=== PATIENT | female | born 1970 | race Caucasian/White ===

== ENCOUNTER 2021-12-25 22:09 | Emergency (ER) | payer OTHER, SELFPAY ==
[2021-12-25 22:17] VITALS: BP 145/85; PULSE 78; RESP 18; TEMP 37.2; O2SAT 96
--- NOTE | 2021-12-25 22:28 | DI.RAD.S_ITS ---
PROCEDURE: XR FINGER RT MIN 2V INDICATIONS: wound from fall with redness/swelling TECHNIQUE: AP hand, 2 views of the 2nd digit acquired. COMPARISON: None. FINDINGS: Bones: No fractures or dislocations. No bony erosions. No suspicious bony lesions. Soft tissues: No suspicious soft tissue calcifications. IMPRESSION: 1. No fractures or dislocation. Dictated by: Geovani English M.D. on 12/25/2021 at 23:39 Approved by: Geovani English M.D. on 12/25/2021 at 23:40
--- NOTE | 2021-12-25 22:40 | ED_ITS ---
HPI - Skin/Abscess/Foreign Bdy General Chief complaint: Skin/Abscess/Foreign Body Stated complaint: rt index finger pain. infection Time Seen by Provider: 12/25/21 22:39 Source: patient Mode of arrival: Ambulatory History of Present Illness HPI narrative: 51-year-old female former smoker presents with pain and swelling to her right index finger over the past few days. She had injured it in suffered a small abrasion or laceration on the dorsal aspect that was thought to be nothing initially but over the past few days has increased in swelling. She has pain with palpation and range of motion. She denies the ability to completely make a fist. She has no red streaks working up her arm. She has no systemic findings such as fever or chills nor nausea or vomiting. Tetanus is current. She is otherwise well and free of complaint is had no dizziness, weakness or lightheadedness. She denies runny nose, sore throat or cough. She has had no nausea, vomiting or diarrhea. Related Data Previous Rx's Medication Instructions Recorded doxycycline hyclate 100 mg tablet 100 mg PO BID #20 tab 12/25/21 hydrocodone 5 mg-acetaminophen 325 1 tab PO Q4-6H PRN #10 tab 12/25/21 mg tablet Allergies Allergy/AdvReac Type Severity Reaction Status Date / Time No Known Drug Allergies Allergy Verified 12/25/21 22:19 Review of Systems Review of Systems Narrative: GENERAL: Denies chills, fatigue, malaise, fever, sweats. HEENT: Denies sinus pain, ear pain, sore throat, difficulty swallowing, dizziness. RESPIRATORY: Denies dyspnea, cough, wheezing, hemoptysis, sputum. CARDIOVASCULAR: Denies chest pain, palpitations, orthopnea, edema, GASTROINTESTINAL: Denies nausea, vomiting, abdominal pain, diarrhea, constipation, melena. : Denies dysuria, frequency, incontinence, hematuria, urinary retention. MUSCULOSKELETAL: See HPI SKIN: See HPI NEUROLOGIC: Denies weakness, headache, numbness, change in speech, confusion, seizures, incoordination. PSYCHIATRIC: No concerning psychosocial issues. 12 point review of systems is negative except for those stated above Patient History Social History Smoking Status: Current every day smoker Smoking Status: Current every day smoker Exam Narrative Exam Narrative: GENERAL: [] year old patient appears stated age. Well-developed patient, in mild distress. HEAD: Atraumatic. Normocephalic. EYES: Pupils equal round and reactive. Extraocular motions intact. No scleral icterus. No injection or drainage. ENT: Nose without bleeding, purulent drainage. Throat without erythema, tonsillar hypertrophy or exudate. Airway patent. NECK: Trachea midline. Non tender CARDIOVASCULAR: Regular rate and rhythm without murmurs, gallops, or rubs. RESPIRATORY: Clear to auscultation. Breath sounds equal bilaterally. No wheezes, rales, or rhonchi. GASTROINTESTINAL: Abdomen soft, non-tender, nondistended. EXTREMITIES: Right index finger with erythema and a small area of fluctuance just proximal to the nail fold with surrounding erythema. There is minimal swelling and erythema, patient has no pain along flexor tendon sheath. BACK: Nontender without deformity or crepitance. No flank tenderness. NEURO: AOx3. SKIN: No rash or erythema of visible areas Initial Vital Signs Initial Vital Signs: Vital Signs Temperature 98.9 F 12/25/21 22:17 Pulse Rate 78 12/25/21 22:17 Respiratory Rate 18 12/25/21 22:17 Blood Pressure 145/85 H 12/25/21 22:17 Pulse Oximetry 96 12/25/21 22:17 Procedures Abscess I/D I&D #1: Site: hand Side (if applicable): right Technique: incised with #11 blade Amount of fluid expressed (mL): 2 Irrigation: Yes Packing used?: none Complications: bleeding Nerve Block Nerve Block 1: Time out performed: Yes Local Anesthetic: lidocaine 1% and with bicarb Amount of anesthesia used (mL): 3 Nerve Blocks: digital Course Orders Ordered: ED Orders 12/25/21 22:28 XR finger RT min 2V Stat 12/25/21 23:15 Wound Culture and Gram Stain Stat Discontinued Medications Hydrocodone Bitart/Acetaminophen (Hydrocodone/Acet 5/325 Prepack) 1 bottle MISC SEEINSTR ONE Stop: 12/25/21 23:00 Last Admin: 12/25/21 23:19 Dose: 1 bottle Documented by: LESLIE Doxycycline Hyclate (Doxycycline Hyclate 100 Mg Tablet) 100 mg PO NOW ONE Stop: 12/25/21 23:00 Last Admin: 12/25/21 23:19 Dose: 100 mg Documented by: LESLIE Lidocaine/Sodium Bicarbonate (Lido 1%/Sod Bicarb 8.4% (10ml) 10 Ml Syringe) 10 ml INJ NOW ONE Stop: 12/25/21 22:43 Last Admin: 12/25/21 23:19 Dose: 10 ml Documented by: LESLIE Consultations Consultation #1: discussed with instructional technology specialist ortho (Valeria) and she recommends, digital block, I&D with culture, wick if possible, ABX and follow up Vital Signs Vital signs: Vital Signs - 8 hr 12/25/21 22:17 Temperature 98.9 F Pulse Rate 78 Respiratory Rate 18 Blood Pressure 145/85 H Pulse Oximetry 96 MDM - Skin/Abscess/Foreign Bdy Imaging Data Extremity x-ray #1: Radiologist's Impression: Close Finger X-Ray (Signed) Geovani English - 12/25/21 Launch?[place] [address] XRay Report Signed Patient: Nohemi Hsu MR#: [id number] : 1970 Acct:[id number] Age/Sex: 51 / F Date of Service: 12/25/21 Loc: ED Accession Number: [id number] ?? Procedure: XR finger RT min 2V Ordering Provider: Ant Schumacher D.O. PROCEDURE:? XR FINGER RT MIN 2V ? INDICATIONS:? wound from fall with redness/swelling ? TECHNIQUE:? AP hand, 2 views of the 2nd digit acquired.? ? COMPARISON:? None. ? FINDINGS:? ? Bones:? No fractures or dislocations.? No bony erosions.? No suspicious bony lesions.? ? Soft tissues:? No suspicious soft tissue calcifications.? ? IMPRESSION:? ? 1. No fractures or dislocation. ? ? Dictated by: Geovani English M.D. on 12/25/2021 at 23:39 ? ? Approved by: Geovani English M.D. on 12/25/2021 at 23:40? [facility] Narrative Medical decision making narrative: 51-year-old female with a few days of worsening redness and pain of right index finger after an injury causing a break to the skin. She is not septic and exam is not consistent with flexor tenosynovitis or deep abscess. Incision and drainage resulted in a small amount of bloody purulence which was cultured and sent to the lab. Finger has been splinted call patient given extensive return precautions and questions answered to her apparent satisfaction Discharge Plan Departure Patient Disposition: Home Clinical Impression: Cellulitis Qualifiers: Site of cellulitis: extremity Site of cellulitis of extremity: finger Laterality: right Qualified Code(s): L03.011 - Cellulitis of right finger Instructions: DI for Cellulitis -- Adult, DI for Wound Infection Activity Restrictions/Additional Instructions: *You have been diagnosed with [Right index finger infection. ] *What to do: *Please continue to take your regular medications as directed. [x ] New medication prescriptions sent to your pharmacy: [[facility] ] [ ] New medication written as a paper prescription [ ] No new medications given *Please follow up with your primary care provider in 2-3 days, call for an appointment. Let them know you were seen in the Emergency Department and that we ask that you be seen in follow up. We will electronically transmit a record of today's note if your PCP is in our system *If you do not have a primary care provider please contact the [facility] Resource line at [phone]. They will ask some questions about your medical history and help get you set up with a doctor in the community. *Return to Emergency Department if you should have any new, worsening or concerning symptoms, such as [fever greater than 101 F, shaking chills, worsening pain, persistent vomiting or other bothersome symptoms] Prescriptions: New hydrocodone-acetaminophen 5-325 mg tablet 1 tab PO Q4-6H PRN (Reason: pain) Qty: 10 0RF doxycycline hyclate 100 mg tablet 100 mg PO BID Qty: 20 0RF Visit Report Forms: Patient Portal/API
[2021-12-25] MEDS: LIDO 1%/SOD BICARB 8.4% (10ML) 10 ML SYRINGE INJ (23:19)
[2021-12-25] MEDS: DOXYCYCLINE HYCLATE 100 MG TABLET PO (23:19)
[2021-12-25] MEDS: HYDROCODONE/ACET 5/325 PREPACK 1 BOTTLE MISC (23:19)
== END 2021-12-25 23:35 | disposition home or self-care (01) ==
PROVIDERS: Emergency Provider Emergency Medicine
DX: L03.011 Cellulitis of right finger (principal)
CPT/HCPCS: 10060; 73140; 87070; 87075; 87205; 99283